=== PATIENT | male | born 2000 | race Caucasian/White ===

== ENCOUNTER → 2018-11-24 | Outpatient (CLI) | payer OTHER ==
--- NOTE | 2018-11-24 17:09 | REP ---
Maxillofacial CT study without contrast: History: Allergic rhinitis. CT findings: Digital preliminary business services assistant radiographs are unremarkable. There are small mucous retention cysts seen in the maxillary sinuses bilaterally. None of these is greater than a centimeter. There are tiny mucous retention cysts and areas of septal and areas of septal thickening in the ethmoid air cells bilaterally. The frontal sinuses are clear. Sphenoid air cells are clear. Mastoid aeration is normal and symmetric. The middle ears appear fully aerated bilaterally. There is leftward deviation of the nasal septum moderate degree via bowing without a septal beak. Nasal turbinate soft tissues are symmetric. There is mucosal thickening obscuring the ostium and infundibulum of the OMC on the right. The ostiomeatal complex on the left is patent although somewhat narrowed developmentally. There is no intraorbital abnormality. Visualized intracranial structures are unremarkable. Impression: Mild mucosal changes in the maxillary and ethmoid sinuses bilaterally. The right ostiomeatal complex is obscured by mucosal thickening. There is a right-sided Asmita cell as well. The left ostiomeatal complex is narrowed but open. There is leftward bowing of the nasal septum. Electronically Signed by Hood Mojica MD 11/25/2018 07:59 A
== END ==
LOC: M RAD 13:54
PROVIDERS: ATTEND Otolaryngology
DX: J30.9 Allergic rhinitis, unspecified (principal)